=== PATIENT | female | born 1945 | race Caucasian/White ===

== ENCOUNTER 2024-06-04 07:55 | Day surgery (SDC) | payer MEDICARE, SELFPAY ==
[2024-05-29 14:56] VITALS: BMI 21.9
[2024-06-04 08:26] VITALS: BP 133/92; PULSE 68; RESP 17; TEMP 36.2; O2SAT 98
[2024-06-04] MEDS: APRACLONIDINE 0.5% OPHTH SOLN 5ML OP (08:30)
[2024-06-04] MEDS: PHENYLEPHRINE 2.5% OPHTH SOLN 2ML OP (08:30)
[2024-06-04] MEDS: TETRACAINE 0.5% OPTH SOL 15ML OP (08:30)
[2024-06-04] MEDS: TROPICAMIDE 1% OPTH SOLN 2ML OP (08:30)
--- NOTE | 2024-06-04 10:39 | P.PCN_ITS ---
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 The patient has noticed that the vision has decreased from the previous good level postop. The patient reports that he/she is having trouble reading and/or driving or that glare is giving them a problem. On exam, the patient was found to have visually significant posterior capsular opacification. The treatment options, risks and benefits were explained and the patient elected to have YAG laser capsulotomy in an attempt to improve the vision. Of note, the best corrected visual acuity is in the 20/30 or worse range by refraction or glare testing. The eye was dilated and 1 drop of 0.5% Iopidine applied. YAG laser energy was applied to the posterior capsular bag with good formation of an opening and no complications were noted. The patient will be seen back for follow up in 2 weeks. 27 pulses, 91 mj.
== END 2024-06-04 09:29 | disposition home or self-care (01) ==
PROVIDERS: Visit Provider Ophthalmology
PROC: (CPT 66821; principal; 2024-06-04 08:00)
DX: H26.491 Other secondary cataract, right eye (principal)
CPT/HCPCS: 66821